=== PATIENT | male | born 1960 | race Caucasian/White ===

== ENCOUNTER 2016-09-21 21:40 | Emergency (ER) | payer BC ==
[2016-09-21] MEDS ORDERED: LORazepam TAB(*) 1 MG PO ONE (22:04)
[2016-09-21] MEDS ORDERED: predniSONE TAB* 20 MG PO ONE (22:04)
[2016-09-21] MEDS ORDERED: LORazepam TAB(*) 1 MG ONE (22:06)
[2016-09-21] MEDS ORDERED: predniSONE TAB* 20 MG ONE (22:07)
[2016-09-21] MEDS ORDERED: Albuterol/Ipratropium NEB.SOL* Albuterol 2.5 MG/Ipratropium 0.5 MG 3 ML ONE (22:07)
[2016-09-21] MEDS ORDERED: Albuterol/Ipratropium NEB.SOL* Albuterol 2.5 MG/Ipratropium 0.5 MG 3 ML INH ONE (22:09)
[2016-09-21] MEDS ORDERED: Albuterol/Ipratropium NEB.SOL* Albuterol 2.5 MG/Ipratropium 0.5 MG 3 ML INH SCH (23:00)
--- NOTE | 2016-09-21 23:07 | RAD ---
INDICATION: Wheezing, shortness of breath. Cough. COMPARISON: December 24, 2011 TECHNIQUE: Dual energy PA and routine lateral views of the chest were obtained. REPORT: Elevated lung volumes and mild coarsening of the interstitial markings. No alveolar consolidation, focal pulmonary lesion, pleural effusion, pneumothorax. The heart, pulmonary vasculature, and mediastinal contours are unremarkable. Unremarkable soft tissue contours and osseous structures for age. IMPRESSION: Stigmata of probable chronic obstructive pulmonary disease. No acute cardiopulmonary process evident.
[2016-09-21] MEDS ORDERED: Albuterol HFA INHALER* 8 gm MDI INH ONE (23:24)
--- NOTE | 2016-09-21 23:27 | ED ---
Ernst Valenzuela Rebecca, scribed for Jeevan Guzman MD on 09/21/16 at 2204 . Shortness of Breath - HPI Summary HPI Summary: Pt is a 56 y/o M who presents to ED with a CC of SOB. SOB began suddenly today at noon and has been constant since onset. SOB is characterized as mild dyspnea at rest. Sx alleviated by nothing, aggravated by Mucinex. States he took mucinex a few days ago which he believes "hardened everything," exacerbating SOB. Additionally c/o wheezing and abdominal bloating. Denies CP. Reports he began experiencing a panic attack tonight due to SOB. SHx former smoker (quit 2 years ago). PMHx asthma. - History of Current Complaint Chief Complaint: EDShortnessOfBreath Time Seen by Provider: 09/21/16 21:58 Hx Obtained From: Patient Onset/Duration: Sudden Onset, Lasting Hours - 10 hours ago, Still Present Timing: Constant Current Severity: Mild Dyspnea At: Rest Alleviating Factors: Nothing Associated Signs & Symptoms: Wheezing - Allergy/Home Medications Allergies/Adverse Reactions: Allergies Allergy/AdvReac Type Severity Reaction Status Date / Time No Known Allergies Allergy Verified 02/06/16 18:58 PMH/Surg Hx/FS Hx/Imm Hx Endocrine/Hematology History: Denies: Hx Diabetes Respiratory History: Reports: Hx Asthma, Hx Seasonal Allergies - Surgical History Surgery Procedure, Year, and Place: 2 BACK SURGERIES Infectious Disease History: No Infectious Disease History: Denies: Traveled Outside the [place] in Last 30 Days - Family History Known Family History: Negative: Hypertension, Diabetes - Social History Alcohol Use: Rare Substance Use Type: Reports: None Smoking Status (MU): Former Smoker Have You Smoked in the Last Year: No - quit 18 months ago Review of Systems Negative: Chest Pain Positive: Shortness Of Breath - dyspnea at rest, Other - Wheezing Positive: Other - Abdominal bloating All Other Systems Reviewed And Are Negative: Yes Physical Exam - Summary Physical Exam Summary: VITAL SIGNS: Reviewed. GENERAL: Patient is a well developed and nourished male with some distress secondary to the shortness of breath. However, he is able to speak in full sentences. HEAD AND FACE: Normocephalic and atraumatic. EYES: PERRLA, EOMI x 2, No injected conjunctiva. EARS: Hearing grossly intact. Ear canals and tympanic membranes WNL MOUTH: Dry oral mucosa. NECK: Supple, trachea is midline, no adenopathy, no JVD, no carotid bruit. CHEST: Symmetric, No intercostal or abdominal retraction, LUNGS: Diffuse bilateral wheezing and decreased breath sounds.No crackles. CVS: RRR,, S1 and S2 present, no murmurs or gallops appreciated. ABDOMEN: Soft, non-tender. No signs of distention. Positive BS. No rebound, no guarding, and no masses palpated. EXTREMITIES: FROM in all major joints, no edema, no cyanosis or clubbing. NEURO: Alert and oriented x 3. No acute neurological deficits. Speech is normal and follows commands. SKIN: Dry and warm Vital Signs On Initial Exam: Initial Vitals Temp Pulse Resp BP Pulse Ox 97.9 F 83 20 145/91 96 09/21/16 21:42 09/21/16 21:42 09/21/16 21:42 09/21/16 21:42 09/21/16 21:42 Diagnostics - Vital Signs Vital Signs Temp Pulse Resp BP Pulse Ox 09/21/16 21:42 97.9 F 83 20 145/91 96 - Laboratory Lab Statement: Any lab studies that have been ordered have been reviewed, and results considered in the medical decision making process. - Radiology CXR Xray Interpretation: No Acute Changes - Stigmata of probable chronic obstructive pulmonary disease. No acute cardiopulmonary process evident. Radiology Interpretation Completed By: Radiologist Re-Evaluation - Re-Evaluation First Eval Re-Evaluation Time: 23:16 Change: Improved Comment: Pt's sx have slightly improved and he is no longer wheezing. Requesting something to treat panic attacks. Course/Dx - Course Assessment/Plan: Pt is a 56 y/o M who presents to ED with a CC of SOB. SOB began suddenly today at noon and has been constant since onset. SOB is characterized as mild dyspnea at rest. Sx alleviated by nothing, aggravated by Mucinex. States he took mucinex a few days ago which he believes "hardened everything," exacerbating SOB. Additionally c/o wheezing and abdominal bloating. Denies CP. Reports he began experiencing a panic attack tonight due to SOB. SHx former smoker (quit 2 years ago). PMHx asthma. CXR impression: SHows no acute cardiopulmonary pathology. In the ED course he is wheezing. He was given Duonebs, prednisone for his wheezing. He was given Ativan for anxiety. He also has a nasal green thick secretions for the last 15 days. He was given a Rx for Augmentin. After medications all his symptoms have improved. He has no other complaints. I discussed all the findings and test results with the patient. Patient was instructed to return to the emergency room immediately if any of the symptoms return or worsens. Plan of care was discussed with the patient and understands and agrees. All questions were answered at patient satisfaction. There were no further complaints or concerns. Lung exam before discharge: CTA B/L. Good air exchange. No wheezing or crackles heard. CVS: S1 and S2 present. No murmurs appreciated. Patient is alert and oriented x 3. Patient is hemodynamically stable. 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 - Diagnoses Differential Diagnosis/HQI/PQRI: Positive: Asthma, Bronchitis, Pneumonia, Pulmonary Edema Provider Diagnoses: Asthma exacerbation, Anxiety, Acute sinusitis Discharge - Discharge Plan Condition: Stable Disposition: HOME Prescriptions: Amoxicillin/Clavulanate TAB* [Augmentin TAB 875*] 875 mg PO BID #28 tab hydrOXYzine HCL TAB* [Atarax TAB*] 25 mg PO TID PRN #30 tab PRN Reason: Anxiety Referrals: Felipe Wallace MD [Primary Care Provider] - The documentation as recorded by the Ernst white Rebecca accurately reflects the service I personally performed and the decisions made by me, Jeevan Guzman MD.
[2016-09-22 00:03] VITALS: BP 129/76
== END 2016-09-21 23:53 | disposition home or self-care (01) ==
LOC: ED 21:40
DX: J45.901 Unspecified asthma with (acute) exacerbation (principal); F41.9 Anxiety disorder, unspecified; J01.90 Acute sinusitis, unspecified
CPT/HCPCS: 71020; 99283; A9270-GY; J7512

== ENCOUNTER 2018-05-03 10:21 | Emergency (ER) | payer BC ==
[2018-05-03 11:02] VITALS: BP 135/75
--- NOTE | 2018-05-03 11:16 | UC ---
Truncal Trauma HPI - HPI Summary HPI Summary: 57 yo male presents with right side pain s/p fall yesterday. He tells me that he was playing and running around with his grandson outside when he tripped and fell onto his right side with his right arm tucked against his ribs. Did not hit head or have LOC. Did not have much pain to the area at that time, but has since developed pain. He also has some bruising to his right lower ribs/side. He has not taken anything for his discomfort. Denies SOB, cough, chest pain, abdominal pain, n/v, dysuria, or hematuria. - History Of Current Complaint Chief Complaint: UCChestPain Stated Complaint: RIB INJURY Hx Obtained From: Patient Severity Initially: Mild Severity Currently: Mild Pain Intensity: 4 Pain Scale Used: 0-10 Numeric Mechanism Of Injury: Blunt Trauma - Allergies/Home Medications Allergies/Adverse Reactions: Allergies Allergy/AdvReac Type Severity Reaction Status Date / Time No Known Allergies Allergy Verified 05/03/18 11:00 Home Medications: Home Medications Fluticasone NASAL SPRAY 50MCG* [Flonase NASAL SPRAY 50MCG*] 1 spray INH DAILY [History Confirmed 05/03/18] Fluticasone-Salmeterol 500-50* [Advair Diskus 500-50*] 1 puff INH DAILY [History Confirmed 05/03/18] PMH/Surg Hx/FS Hx/Imm Hx Respiratory History: COPD - Surgical History Surgical History: Yes Surgery Procedure, Year, and Place: 2 BACK SURGERIES - Family History Known Family History: Negative: Hypertension, Diabetes - Social History Occupation: Employed Full-time Lives: With Family Alcohol Use: Rare Substance Use Type: None Smoking Status (MU): Former Smoker Have You Smoked in the Last Year: No - quit 18 months ago Review of Systems Constitutional: Negative Skin: Other - Ecchymosis right side Respiratory: Negative Cardiovascular: Negative Gastrointestinal: Negative Genitourinary: Negative Neurovascular: Negative Musculoskeletal: Other: - Right rib pain Neurological: Negative Psychological: Negative All Other Systems Reviewed And Are Negative: Yes Physical Exam - Summary Physical Exam Summary: GENERAL: NAD. WDWN. No pain distress. SKIN: Mild ecchymosis to right lower side (see image). No open wounds or lacerations. NECK: Supple. Nontender. No lymphadenopathy. CHEST: CTAB. No r/r/w. No accessory muscle use. Breathing comfortably and in no distress. CV: RRR. Without m/r/g. Pulses intact. Cap refill <2seconds ABDOMEN: Soft. NTTP. No distention or guarding. No CVA tenderness. Bowel sounds present MSK: FROM UEs without pain. TTP ~right rib 8-10 NEURO: Alert. PSYCH: Age appropriate behavior. Triage Information Reviewed: Yes Vital Signs: Initial Vital Signs Temp 98.3 F 05/03/18 10:55 Pulse 79 05/03/18 10:55 Resp 18 05/03/18 10:55 BP 135/75 05/03/18 10:55 Pulse Ox 97 05/03/18 10:55 Vital Signs Reviewed: Yes Truncal Trauma Course/Dx - Course Course Of Treatment: CT: BONES: There is a nondisplaced fracture of the lateral right ninth rib which appears old. No acute fractures are seen. IMPRESSION: 1. NO EVIDENCE FOR ACUTE FINDING. 2. SOFT TISSUE DENSITY NODULE ANTERIOR TO THE URINARY BLADDER POSSIBLY REPRESENTING AN. ENLARGED LYMPH NODE DESCRIBED. RECOMMEND CLINICAL CORRELATION AND A FOLLOW-UP. NONCONTRAST CT OF THE PELVIS IN 4 MONTHS TIME TO DEMONSTRATE STABILITY. Given his recent trauma, I suspect this rib fracture is acute. Advised to take ibuprofen for discomfort, practice deep breathing, and apply ice to the area. F/u with his PCP regarding other CT findings. To ER for worsening pain, increased bruising, SOB, or cough. - Differential Dx/Diagnosis Provider Diagnoses: Right 9th rib fracture. Abdominal bruising. Fall/trauma Discharge - Sign-Out/Discharge Documenting (check all that apply): Patient Departure All imaging exams completed and their final reports reviewed: Yes - Discharge Plan Condition: Stable Disposition: HOME Patient Education Materials: Rib Fracture (ED) Referrals: Markos Richard MD [Primary Care Provider] - As Soon As Possible Additional Instructions: If you develop a fever, shortness of breath, chest pain, new or worsening symptoms - please call your PCP or go to the ED. 1) Apply ice to the area 2) May take tylenol or ibuprofen for pain 3) Please schedule a follow up appointment with your Primary Doctor as soon as possible - Billing Disposition and Condition Condition: STABLE Disposition: Home Images Front/Back of Body, Lg ([place]): 1 - Ecchymosis lateral not flank - Attestation Statements Provider Attestation: Per institutional requirements, I have reviewed the chart, however, I was not consulted specifically or made aware of this patient by the midlevel provider. I did not personally evaluate, interact with , or disposition this patient.
--- NOTE | 2018-05-03 12:13 | RAD ---
INDICATION: Trauma, pain. COMPARISON: Comparison is made with a prior CT of the abdomen and pelvis from August 26, 2006. TECHNIQUE: A CT scan of the abdomen and pelvis was performed without intravenous and without oral contrast. Contiguous axial sections were obtained from the lung bases through the symphysis pubis. Images were reconstructed in the coronal and sagittal planes. FINDINGS: LUNGS: Images through the lung bases demonstrate a curvilinear density in the left upper lobe at the left lung base consistent with subsegmental atelectasis or scarring. No pleural effusion or pneumothorax is seen. LIVER: The liver is normal in size. There is a 2.1 cm fluid density lesion in the posterior segment of the right hepatic lobe most consistent with a cyst. This has increased in size and previously measured 1.2 cm in size on the prior study. No other focal abnormalities are seen. GALLBLADDER: No calcified gallstones are seen. BILE DUCTS: No intra or extrahepatic ductal distention is seen. SPLEEN: The spleen is normal in size without significant focal abnormality. PANCREAS: The pancreas is normal in size. No ductal distention or calcifications are seen. ADRENAL GLANDS: The adrenal glands are normal in size. KIDNEYS: The kidneys are normal in size. No renal calculi or hydronephrosis is seen. AORTA: The aorta is normal in caliber with mild calcific plaque present. LYMPH NODES: No enlarged retroperitoneal lymph nodes are seen. There is a soft tissue density nodule present adjacent to the anterior aspect of the urinary bladder on the left side measuring 1.6 x 1.2 cm in size possibly representing an enlarged lymph node. BOWEL: The stomach, small and large bowel appear nondistended. The appendix appears to be within normal limits. There is no evidence for diverticulitis or colitis. PELVIC ORGANS: No bladder wall thickening is seen. There is a enlargement of the right seminal vesicle which appear to be secondary to a cyst on the prior CT study and appears unchanged. PERITONEUM: No free intraperitoneal air or fluid is seen. BONES: There is a nondisplaced fracture of the lateral right ninth rib which appears old. No acute fractures are seen. IMPRESSION: 1. NO EVIDENCE FOR ACUTE FINDING. 2. SOFT TISSUE DENSITY NODULE ANTERIOR TO THE URINARY BLADDER POSSIBLY REPRESENTING AN ENLARGED LYMPH NODE DESCRIBED. RECOMMEND CLINICAL CORRELATION AND A FOLLOW-UP NONCONTRAST CT OF THE PELVIS IN 4 MONTHS TIME TO DEMONSTRATE STABILITY.
== END 2018-05-03 12:36 | disposition home or self-care (01) ==
LOC: UCEAST 10:21
CPT/HCPCS: 74176; 99211; G0463

== ENCOUNTER 2018-08-10 19:59 | Emergency (ER) | payer BC ==
--- NOTE | 2018-08-10 22:47 | ED ---
Psychiatric Complaint - HPI Summary HPI Summary: Patient complains of chronic nasal congestion and consequently being unable to breathe sufficiently causing panic attacks. History of same times years. States symptoms are worse when he is lying down to go to sleep, causing further panic. Patient has Rx for hydroxyzine which he does not take. Patient is currently taking doxycycline, Mucinex, and Flonase per PCP for nasal congestion without relief. Denies any other symptoms including fever, cough, sore throat , CP, N/V/D, abdominal pain, change in urine, change in BM. Patient states minimal anxiety at time of exam. Medical history anxiety, early emphysema, COPD. Former smoker. - History Of Current Complaint Chief Complaint: EDPsychosocial Time Seen by Provider: 08/10/18 22:21 Hx Obtained From: Patient Onset/Duration: Gradual Onset, Lasting Days Timing: Constant Severity Initially: Moderate Severity Currently: Moderate Character: Anxious Aggravating Factor(s): Medication Non-compliance Alleviating Factor(s): Nothing Associated Signs And Symptoms: Positive: Negative - Allergies/Home Medications Allergies/Adverse Reactions: Allergies Allergy/AdvReac Type Severity Reaction Status Date / Time No Known Allergies Allergy Verified 05/03/18 11:00 PMH/Surg Hx/FS Hx/Imm Hx Endocrine/Hematology History: Denies: Hx Diabetes Cardiovascular History: Denies: Hx Cardiac Arrest Respiratory History: Reports: Hx Asthma, Hx Chronic Obstructive Pulmonary Disease (COPD) - and emphesema, Hx Seasonal Allergies History: Denies: Hx Dialysis Sensory History: Denies: Hx Eye Prosthesis Neurological History: Denies: Hx Dementia Psychiatric History: Denies: Hx Autism - Surgical History Surgery Procedure, Year, and Place: 2 BACK SURGERIES Infectious Disease History: No Infectious Disease History: Denies: Traveled Outside the [place] in Last 30 Days - Family History Known Family History: Negative: Hypertension, Diabetes - Social History Alcohol Use: Rare Substance Use Type: Reports: None Smoking Status (MU): Former Smoker Have You Smoked in the Last Year: No - quit 18 months ago Review of Systems Constitutional: Negative Eyes: Negative Positive: Nasal Discharge Cardiovascular: Negative Positive: Shortness Of Breath Gastrointestinal: Negative Genitourinary: Negative Musculoskeletal: Negative Skin: Negative Neurological: Negative Positive: Anxious All Other Systems Reviewed And Are Negative: Yes Physical Exam - Summary Physical Exam Summary: Lung sounds clear to auscultation bilaterally. ENT exam normal. O2 sats sitting up and lying down within 96-100. This information was observed by patient and his in hopes that it would give piece of mind. Patient mildly anxious, appears to be hoping for a magic bullet to clear all his symptoms. Physical exam unremarkable. Triage Information Reviewed: Yes Vital Signs On Initial Exam: Initial Vitals Temp Pulse Resp BP Pulse Ox 98.1 F 84 18 149/97 96 08/10/18 20:20 08/10/18 20:20 08/10/18 20:20 08/10/18 20:20 08/10/18 20:20 Vital Signs Reviewed: Yes Appearance: Positive: Well-Appearing Skin: Positive: Warm Head/Face: Positive: Normal Head/Face Inspection Eyes: Positive: Normal ENT: Positive: Normal ENT inspection Neck: Positive: Supple Respiratory/Lung Sounds: Positive: Clear to Auscultation Cardiovascular: Positive: Normal Abdomen Description: Positive: Nontender Musculoskeletal: Positive: Normal Neurological: Positive: Normal Psychiatric: Positive: Normal AVPU Assessment: Alert - [place] Coma Scale Best Eye Response: 4 - Spontaneous Best Motor Response: 6 - Obeys Commands Best Verbal Response: 5 - Oriented Coma Scale Total: 15 Diagnostics - Vital Signs Vital Signs Temp Pulse Resp BP Pulse Ox 08/10/18 20:20 98.1 F 84 18 149/97 96 - Laboratory Lab Statement: Any lab studies that have been ordered have been reviewed, and results considered in the medical decision making process. Course/Dx - Course Course Of Treatment: Patient complains of chronic nasal congestion and consequently being unable to breathe sufficiently causing panic attacks. History of same times years. States symptoms are worse when he is lying down to go to sleep, causing further panic. Patient has Rx for hydroxyzine which he does not take. Patient is currently taking doxycycline, Mucinex, and Flonase per PCP for nasal congestion without relief. Denies any other symptoms including fever, cough, sore throat, CP, N/V/D, abdominal pain, change in urine , change in BM. Patient states minimal anxiety at time of exam. Medical history anxiety, early emphysema, COPD. Former smoker. Physical exam:Lung sounds clear to auscultation bilaterally. ENT exam normal. O2 sats sitting up and lying down within 96-100. This information was observed by patient and his in hopes that it would give piece of mind. Patient mildly anxious, appears to be hoping for a magic bullet to clear all his symptoms. Physical exam unremarkable. Vital signs within normal limits. Patient advised to resumed taking hydroxyzine. Also advised to try that he probably saline solution for chronic nasal congestion. Follow-up with primary care. - Differential Dx/Clinical Impression Provider Diagnosis: Panic attack, Nasal congestion Discharge - Sign-Out/Discharge Documenting (check all that apply): Patient Departure - Discharge Plan Condition: Stable Disposition: HOME Patient Education Materials: Anxiety (ED), Panic Attack (ED) Referrals: Markos Richard MD [Primary Care Provider] - Additional Instructions: Taking hydroxyzine daily when you get home from work for control of panic attack. For nasal congestion try a netti pot available which your local pharmacy. Follow-up with primary care. Return to the ED for any new or worsening symptoms - Billing Disposition and Condition Condition: STABLE Disposition: Home
[2018-08-10 23:03] VITALS: BP 138/89
== END 2018-08-10 23:16 | disposition home or self-care (01) ==
LOC: ED 19:59
DX: F41.0 Panic disorder [episodic paroxysmal anxiety] (principal); R09.81 Nasal congestion; Z87.891 Personal history of nicotine dependence
CPT/HCPCS: 99282

== ENCOUNTER 2023-09-27 15:47 | Observation (INO) ==
[2023-09-27] MEDS: Lactated Ringers 1000 ml BAG 1,000 ML IV ONE ×2 (16:23→22:07)
[2023-09-27] MEDS: Metoclopramide 5 MG/ML VIAL (10 mg) IV ONE (16:23)
[2023-09-27 17:00] LABS: Hematocrit 42.2 % (38-53); Hemoglobin 14.3 g/dL (13.2-16.3); Mean Corpuscular Hemoglobin 31.7 pg (27-33); Mean Corpuscular Hgb Conc 33.9 g/dL (31-36); Mean Corpuscular Volume 93.5 fL (80-97); Mean Platelet Volume 8.9 fL (7.5-11.2); Platelet Count 201 10^3/uL (150-450); Red Blood Count 4.51 10^6/uL (4.06-5.63); White Blood Count 12.1 10^3/uL (3.6-10.2)
[2023-09-27 17:15] LABS: INR 1.18 (0.83-1.13)
[2023-09-27 17:21] LABS: Albumin 3.7 g/dL (3.2-5.2); Albumin/Globulin Ratio 1.1 (1-3); C Reactive Protein 114.42 mg/L (<8.01); Calcium 8.7 mg/dL (8.6-10.3); Creatinine, Serum 1.08 mg/dL (0.67-1.17); Globulin 3.5 g/dL (2-4); Potassium 3.3 mmol/L (3.5-5.0); Total Bilirubin 1.4 mg/dL (0.2-1.0); Total Protein 7.2 g/dL (6.4-8.9); eGFR CKD-EPI 77.6 (>60)
[2023-09-27 17:46] LABS: Urine Appearance Turbid; Urine Bilirubin Negative (Negative); Urine Blood Negative (Negative); Urine Color Yellow; Urine Glucose Negative (Negative); Urine Ketones 2+ (Negative); Urine Nitrite Negative (Negative); Urine Protein 2+ (>=100 mg/dL) (Negative); Urine Specific Gravity 1.037 (1.002-1.030); Urine Urobilinogen Negative (Negative); Urine pH 5.5 (5.0-8.0)
[2023-09-27] MEDS: KCL 20 MEQ/100 ML IVPREMIX 20 MEQ/100 ML BAG IV SCH (17:50)
[2023-09-27 17:57] LABS: Urine Bacteria 1+ /HPF (Absent); Urine Red Blood Cell 1+(3-5/hpf) /HPF (0-Trace); Urine Squamous Epithelial Cell Present /HPF (Absent); Urine White Blood Cell Trace(0-5/hpf) /HPF (0-Trace)
[2023-09-27 18:02] LABS: ABS Basophils 0.1 10^3/uL (0.0-0.1); ABS Lymphocytes 0.9 10^3/uL (1.0-4.8); ABS Monocytes 1.7 10^3/uL (0.0-1.1); ABS Neutrophils 9.4 10^3/uL (1.5-7.6); ABS Nucleated RBC 0.01 10^3/ul; Lymphocyte % 7.8 %; Nucleated Red Blood Cells % 0.1 %/100WBC (0.0-0.8); RBC Morphology Normal (Normal)
[2023-09-27] MEDS: Iohexol 350 (CONTRAST) 500 ML MDV IV ONE (18:59)
[2023-09-27] MEDS: Potassium Chlor 20 meq TAB.ER PO ONE ×2 (20:05→22:30)
[2023-09-27] MEDS: Enoxaparin 40 MG/0.4 ML SYR SUBCUT SCH (22:07)
[2023-09-27 22:43] LABS: Magnesium 1.9 mg/dL (1.9-2.7)
[2023-09-27] MEDS: cefTRIAXone 1 gm/50 mL D5W 1 GM/50 ML BAG IV SCH (23:04)
[2023-09-28 06:16] LABS: Calcium 8.5 mg/dL (8.6-10.3); Creatinine, Serum 1.01 mg/dL (0.67-1.17); Potassium 4.6 mmol/L (3.5-5.0); eGFR CKD-EPI 84.1 (>60)
[2023-09-28 08:16] LABS: ABS Basophils 0.1 10^3/uL (0.0-0.1); ABS Lymphocytes 1.1 10^3/uL (1.0-4.8); ABS Monocytes 1.3 10^3/uL (0.0-1.1); ABS Neutrophils 9.6 10^3/uL (1.5-7.6); ABS Nucleated RBC 0.02 10^3/ul; Hematocrit 41.7 % (38-53); Hypochromasia 1+; Lymphocyte % 9.1 %; Mean Corpuscular Hemoglobin 31.7 pg (27-33); Mean Corpuscular Hgb Conc 33.5 g/dL (31-36); Mean Corpuscular Volume 94.9 fL (80-97); Mean Platelet Volume 9.5 fL (7.5-11.2); Nucleated Red Blood Cells % 0.2 %/100WBC (0.0-0.8); Platelet Count 176 10^3/uL (150-450); Red Cell Distribution Width 13.3 % (12-17); White Blood Count 12.1 10^3/uL (3.6-10.2)
[2023-09-28] MEDS: Mometasone/Formoter 100/5 MDI INH SCH (08:16)
[2023-09-28] MEDS: Fluticasone NASAL SPRAY 50MCG 16 gm SPRAY BTL INTRANASAL SCH (08:58)
[2023-09-28] MEDS ORDERED: Olmesartan 20 mg TAB (NF) PO SCH (09:00)
[2023-09-28] MEDS: ABIRATERONE 250 MG PO SCH (10:20)
[2023-09-28] MEDS: Nystatin TOP POWDER 15 GM BTL TOPICAL SCH (20:12)
[2023-09-28] MEDS: cefTRIAXone 1 gm/50 mL D5W 1 GM/50 ML BAG IV SCH (23:12)
[2023-09-29 09:10] VITALS: BP 114/74
== END 2023-09-29 12:50 | disposition home or self-care (01) ==
LOC: EDHOLD 15:47 → ED 15:47 → MED 09-28 14:23
PROVIDERS: ADMIT Internal Medicine; ATTEND Internal Medicine